=== PATIENT | female | born 1955 | race Caucasian/White ===

== ENCOUNTER 2021-11-03 05:55 | Day surgery (SDC) | payer MEDICARE, OTHER ==
[2021-11-03] MEDS ORDERED: Lactated Ringers 1,000 ML IV SCH (06:00)
[2021-11-03] MEDS ORDERED: DIPRIVAN 200 MG/20 ML IV ONE ×2 (07:31→07:32)
[2021-11-03] MEDS ORDERED: Versed 2 MG/2 ML Injection ONE (07:32)
[2021-11-03 08:35] VITALS: O2SAT 98
[2021-11-03 08:43] VITALS: BP 159/93; PULSE 79
--- NOTE | 2021-11-03 14:06 | OP ---
SURGERY DATE/TIME: 11/03/2021 2021 PREOPERATIVE DIAGNOSIS: Screening exam. POSTOPERATIVE DIAGNOSIS: Scattered diverticulosis of the colon of mild nature. PROCEDURE: Colonoscopy. SURGEON: Dr. Baez. ANESTHESIA: MAC. Medications given by anesthesia department. HISTORY: The patient is a 65-year-old white female presenting now for screening colonoscopy. She was appraised of the risks of the procedure including the risk of perforation, phlebitis, untoward reaction to medication, bleeding and missed lesions. The patient verbalized her understanding and desired to have the procedure performed. DESCRIPTION OF PROCEDURE: The patient was given the medications by the anesthesia department. She had continuous pulse oximetry, ECG monitoring, intermittent blood pressure monitoring during the examination. The patient was placed in the left lateral decubitus position. A digital rectal examination was performed and revealed normal anal sphincter tone and no masses. The flexible Olympus pediatric colonoscope was used to intubate the rectum. A view of the colon was developed sequentially to the cecum. Upon insertion and withdrawal was noted scattered diverticula throughout the colon. No other mucosal lesions were encountered. The scope was removed from the patient who tolerated the procedure well and was sent back to OP recovery in good condition. The prep was noted to be fair to good.
== END 2021-11-03 08:55 | disposition home or self-care (01) ==
LOC: SDC 05:55
PROVIDERS: ATTEND Family Medicine
DX: Z12.11 Encounter for screening for malignant neoplasm of colon (principal); K57.30 Diverticulosis of large intestine without perforation or abscess without bleeding; E11.9 Type 2 diabetes mellitus without complications; Z79.899 Other long term (current) drug therapy; I10 Essential (primary) hypertension
CPT/HCPCS: 82947; G0121; J2250; J2704

== ENCOUNTER 2025-10-04 12:52 | Emergency (ER) | payer MEDICARE ==
[2025-10-04 13:00] VITALS: TEMP 98.2
[2025-10-04 13:28] LABS: BASOPHIL % 0.5 % (0.1-1.2); Basophil (Absolute #) 0.06 x10^3/uL (0.01-0.08); Eosinophil (Absolute #) 0.21 x10^3/uL (0.04-0.36); Hematocrit 41.8 % (34.1-44.9); Hemoglobin 13.9 g/dL (11.2-15.7); IMMATURE GRAN # 0.08 x10^3u/L (0.001-0.031); IMMATURE GRAN % 0.7 % (0.001-0.429); Lymphocyte (Absolute #) 2.81 x10^3/uL (1.18-3.74); Mean Corpuscular Hemoglobin 30.3 pg (25.6-32.2); Mean Corpuscular Hgb Concent. 33.3 g/dL (32.2-35.5); Monocyte (Absolute #) 0.71 x10^3/uL (0.24-0.86); NUCLEATED RBC # 0.00 x10^3u/L (0.00-0.012); NUCLEATED RBC % 0.0 % (0.00-0.2); Platelet Count 417 x10^3/uL (182-369); Red Blood Count 4.58 x10^6/uL (3.93-5.22); White Blood Count 11.4 x10^3/uL (3.98-10.04)
[2025-10-04 13:35] LABS: Calcium 9.3 mg/dL (8.4-10.2); Carbon Dioxide 24.0 mmol/L (22-30); Creatinine 1 0.73 mg/dL (0.52-1.04); EST GLOMERULAR FILTRATION RATE 88.4 ML/MIN; Glucose 281.0 mg/dL (74-106); Potassium 4.1 mmol/L (3.5-5.1); SGOT/AST 31.0 U/L (14-36); SGPT/ALT 28.0 U/L (0-35); Total Protein 8.2 g/dL (6.3-8.2)
[2025-10-04] MEDS: hydroDIURIL 25 MG PO ONE (13:35)
[2025-10-04 13:48] LABS: NT PRO BNPII 88.0 pg/mL (<300); TROPONIN < 0.012 ng/mL (0.000-0.033)
--- NOTE | 2025-10-04 13:49 | XRAY ---
Indication: Hypertension. Comparison: None Portable apical lordotic chest clear with incidental tiny left base calcified granuloma. Heart not enlarged. Bony thorax intact. No acute findings.
--- NOTE | 2025-10-04 14:04 | ERPHSYRPT ---
- History of Present Illness Time Seen by Provider: 10/04/25 12:55 Source: patient Exam Limitations: no limitations Patient Subjective Stated Complaint: PT STATES HER BLOOD PRESSURE IS HIGH Triage Nursing Assessment: PT ARRIVES TO THE ED VIA PRIVATE VEHICLE. PT IS ABLE TO AMBULATE INTO THE ED WITHOUT DIFFICULTY. PT ALERT AND ORIENTED X4, NO SIGNS OF RESPIRATORY DITRESS NOTED, PULSES STRONG AND EQUAL BILATERALLY. PT STATES THAT FOR THE PAST DAY HER BLOOD PRESSURE HAS BEEN HIGH. PT STATES IT HAS BEEN IN THE 190'S SYSTOLICALLY WHEN SHE CHECKS IT AT HOME. PT STATES THAT HER CHEST HAS HAD A DULL ACHING PAIN FOR ONE WEEK, BUT NOTHING SHARP OR CRUSHING. PT DENIES NEW MEDICATIONS, BLURRED VISION, WEAKNESS. Physician History: 69-year-old female presents to the emergency room feeling off she reports her blood pressure has been elevated she reports she has been on benazepril for many years denies any changes in her medications denies any symptoms of dizziness denies any strokelike symptoms denies any shortness of breath she reports for the past few days she has been feeling occasional chest discomfort but denies any abdominal pain denies any nausea vomiting or diarrhea patient is now in ED for further eval Timing/Duration: day(s) (1) Severity: mild Associated Symptoms: No nausea, No vomiting, No cough, No fever, No headaches, No loss of appetite, No syncope Allergies/Adverse Reactions: No Known Drug Allergies Allergy (Verified 11/03/21 06:16) Home Medications: Alendronate Sodium 70 mg [Fosamax 70 MG] 1 tab PO WEEKLY 10/30/21 [History] Benazepril HCl 1 tab PO HS 10/30/21 [History] Levothyroxine Sodium [Euthyrox] 1 tab PO DAILY 10/30/21 [History] Metformin HCl 500 mg [Glucophage 500 MG] 1 tab PO BID 10/30/21 [History] Simvastatin 1 tab PO HS 10/30/21 [History] glyBURIDE [Glyburide] 1 tab PO BID 10/30/21 [History] Fish Oil/Dha/Epa [Fish Oil 1,200 mg Fish Oil] 1 each PO HS 10/04/25 [History] Hx Tetanus, Diphtheria Vaccination/Date Given: No Hx Influenza Vaccination/Date Given: No Hx Pneumococcal Vaccination/Date Given: No Immunizations Up to Date: No Travel Risk - International Travel Have you traveled outside of the country in past 3 weeks: No - Emerging Infectious Disease Are you exhibiting symptoms associated with any current EIDs: No - Review of Systems Constitutional: No Fever, No Chills Eyes: No Symptoms Ears, Nose, & Throat: No Symptoms Respiratory: No Cough, No Dyspnea Cardiac: No Chest Pain, No Edema, No Syncope Abdominal/Gastrointestinal: No Abdominal Pain, No Nausea, No Vomiting, No Diarrhea Genitourinary Symptoms: No Dysuria Musculoskeletal: No Back Pain, No Neck Pain Skin: No Rash Neurological: No Dizziness, No Focal Weakness, No Sensory Changes Psychological: No Symptoms Endocrine: No Symptoms All Other Systems: Reviewed and Negative - Past Medical History Pertinent Past Medical History: Yes Neurological History: No Pertinent History ENT History: No Pertinent History Cardiac History: High Cholesterol, Hypertension Respiratory History: No Pertinent History Endocrine Medical History: Diabetes Type II, Hypothyroidism Musculoskeletal History: No Pertinent History GI Medical History: No Pertinent History History: No Pertinent History Psycho-Social History: No Pertinent History Female Reproductive Disorders: No Pertinent History - Past Surgical History Past Surgical History: Yes Neuro Surgical History: No Pertinent History Cardiac: No Pertinent History Respiratory: No Pertinent History Gastrointestinal: Appendectomy Genitourinary: No Pertinent History Musculoskeletal: No Pertinent History Female Surgical History: No Pertinent History - Social History Smoking Status: Never smoker Exposure to second hand smoke: No Drug Use: none - Social Determinants of Health Will the patient participate in the screening: Yes Do you worry about a steady place to live?: No Do you have any problems with any of the following?: No known problems In the past 12 months,have you had to go without utilities?: No Transportation Issues: No Has anyone in your support network made you feel unsafe?: No Have you or anyone in your house had to go w/o enough food: No - Nursing Vital Signs Nursing Vital Signs: Initial Vital Signs Temperature 98.2 F 10/04/25 12:59 Pulse Rate 83 10/04/25 12:59 Respiratory Rate 16 10/04/25 12:59 Blood Pressure 215/114 10/04/25 12:59 O2 Sat by Pulse Oximetry 97 10/04/25 12:59 Pain Scale Pain Intensity 0 - Physical Exam General Appearance: no apparent distress, alert Eye Exam: PERRL/EOMI, eyes nml inspection Ears, Nose, Throat Exam: normal ENT inspection, TMs normal, pharynx normal, moist mucous membranes Neck Exam: normal inspection, non-tender, supple, full range of motion Respiratory Exam: normal breath sounds, lungs clear, No respiratory distress Cardiovascular Exam: regular rate/rhythm, normal heart sounds, normal peripheral pulses Gastrointestinal/Abdomen Exam: soft, normal bowel sounds, No tenderness, No mass Back Exam: normal inspection, normal range of motion, No CVA tenderness, No vertebral tenderness Extremity Exam: normal inspection, normal range of motion, pelvis stable Neurologic Exam: alert, oriented x 3, cooperative, normal mood/affect, nml cerebellar function, nml station & gait, sensation nml, No motor deficits Skin Exam: normal color, warm, dry, No rash Lymphatic Exam: No adenopathy SpO2: 95 - Course Nursing assessment & vital signs reviewed: Yes EKG Interpreted by Me: RATE, Sinus Rhythm (74), Non-specific ST Changes, Other (no STEMI) Ordered Tests: Active Orders 24 hr Category Date Time Status EKG-ER Only STAT Care 10/04/25 13:18 Completed CHEST 1 VIEW (PORTABLE) Stat Exams 10/04/25 13:18 Completed CBC W DIFF Stat Lab 10/04/25 13:00 Completed CMP Stat Lab 10/04/25 13:00 Completed NT PRO BNPII Stat Lab 10/04/25 13:00 Completed TROPONIN Q3H Lab 10/04/25 13:00 Completed TROPONIN Q3H Lab 10/04/25 16:03 Received UA W/RFX UR CULTURE Stat Lab 10/04/25 13:43 Completed Medication Summary Discontinued Medications Generic Name Dose Route Start Last Admin Trade Name Osvaldo PRN Reason Stop Dose Admin Hydrochlorothiazide 12.5 mg 10/04/25 10:00 10/04/25 13:35 Hydrochlorothiazide 25 Mg Tablet PO 10/04/25 10:01 12.5 mg NOW ONE Administration Lab/Rad Data: Laboratory Result Diagrams 10/04/25 13:00 10/04/25 13:00 Laboratory Results 10/04/25 10/04/25 10/04/25 Range/Units 13:43 13:00 13:00 WBC (3.98-10.04) x10^3/uL RBC (3.93-5.22) x10^6/uL Hgb (11.2-15.7) g/dL Hct (34.1-44.9) % MCV (79.4-94.8) fL MCH (25.6-32.2) pg MCHC (32.2-35.5) g/dL RDW (11.7-14.4) % Plt Count (182-369) x10^3/uL MPV (9.4-12.3) fL Gran % (34.0-71.1) % Immature Gran % (Auto) (0.001-0.429) % Nucleat RBC Rel Count (0.00-0.2) % Eos # (Auto) (0.04-0.36) x10^3/uL Immature Gran # (Auto) (0.001-0.031) x10^3u/L Absolute Lymphs (auto) (1.18-3.74) x10^3/uL Absolute Monos (auto) (0.24-0.86) x10^3/uL Absolute Nucleated RBC (0.00-0.012) x10^3u/L Lymphocytes % (19.3-51.7) % Monocytes % (4.7-12.5) % Eosinophils % (0.7-5.8) % Basophils % (0.1-1.2) % Absolute Granulocytes (1.56-6.13) x10^3/uL Basophils # (0.01-0.08) x10^3/uL Sodium 136 (135-145) mmol/L Potassium 4.1 (3.5-5.1) mmol/L Chloride 101 (98-107) mmol/L Carbon Dioxide 24 (22-30) mmol/L Anion Gap 14.5 (5-15) MEQ/L BUN 17 (7-17) mg/dL Creatinine 0.73 (0.52-1.04) mg/dL Estimated GFR 88.4 ML/MIN Glucose 281 H (74-106) mg/dL Calcium 9.3 (8.4-10.2) mg/dL Total Bilirubin 0.50 (0.2-1.3) mg/dL AST 31 (14-36) U/L ALT 28 (0-35) U/L Alkaline Phosphatase 68 (38-126) U/L Troponin I < 0.012 (0.000-0.033) ng/mL NT-Pro-B Natriuret Pep 88.0 (<300) pg/mL Serum Total Protein 8.2 (6.3-8.2) g/dL Albumin 4.8 (3.5-5.0) g/dL Urine Color Yellow (Yellow) Urine Appearance Clear (Clear) Urine pH 7.0 (4.6-8.0) Ur Specific [place] <=1.005 (1.005-1.030) Urine Protein Negative (Negative) Urine Glucose (UA) 500 A (Negative) mg/dL Urine Ketones Negative (Negative) Urine Blood Trace (Negative) Urine Nitrite Negative (Negative) Urine Bilirubin Negative (Negative) Urine Urobilinogen 0.2 (0.2) mg/dL Ur Leukocyte Esterase Negative (Negative) U Hyaline Cast (Auto) NONE SEEN (0-2) /LPF Urine Microscopic RBC 0-2 (0-5) /HPF Urine Microscopic WBC 0-2 (0-5) /HPF Ur Epithelial Cells None Seen (None Seen) /HPF Urine Bacteria None Seen (None Seen) /HPF Urine Culture Reflexed NO (NO) 10/04/25 Range/Units 13:00 WBC 11.4 H (3.98-10.04) x10^3/uL RBC 4.58 (3.93-5.22) x10^6/uL Hgb 13.9 (11.2-15.7) g/dL Hct 41.8 (34.1-44.9) % MCV 91.3 (79.4-94.8) fL MCH 30.3 (25.6-32.2) pg MCHC 33.3 (32.2-35.5) g/dL RDW 12.2 (11.7-14.4) % Plt Count 417 H (182-369) x10^3/uL MPV 10.2 (9.4-12.3) fL Gran % 66.2 (34.0-71.1) % Immature Gran % (Auto) 0.7 H (0.001-0.429) % Nucleat RBC Rel Count 0.0 (0.00-0.2) % Eos # (Auto) 0.21 (0.04-0.36) x10^3/uL Immature Gran # (Auto) 0.08 H (0.001-0.031) x10^3u/L Absolute Lymphs (auto) 2.81 (1.18-3.74) x10^3/uL Absolute Monos (auto) 0.71 (0.24-0.86) x10^3/uL Absolute Nucleated RBC 0.00 (0.00-0.012) x10^3u/L Lymphocytes % 24.6 (19.3-51.7) % Monocytes % 6.2 (4.7-12.5) % Eosinophils % 1.8 (0.7-5.8) % Basophils % 0.5 (0.1-1.2) % Absolute Granulocytes 7.55 H (1.56-6.13) x10^3/uL Basophils # 0.06 (0.01-0.08) x10^3/uL Sodium (135-145) mmol/L Potassium (3.5-5.1) mmol/L Chloride (98-107) mmol/L Carbon Dioxide (22-30) mmol/L Anion Gap (5-15) MEQ/L BUN (7-17) mg/dL Creatinine (0.52-1.04) mg/dL Estimated GFR ML/MIN Glucose (74-106) mg/dL Calcium (8.4-10.2) mg/dL Total Bilirubin (0.2-1.3) mg/dL AST (14-36) U/L ALT (0-35) U/L Alkaline Phosphatase (38-126) U/L Troponin I (0.000-0.033) ng/mL NT-Pro-B Natriuret Pep (<300) pg/mL Serum Total Protein (6.3-8.2) g/dL Albumin (3.5-5.0) g/dL Urine Color (Yellow) Urine Appearance (Clear) Urine pH (4.6-8.0) Ur Specific [place] (1.005-1.030) Urine Protein (Negative) Urine Glucose (UA) (Negative) mg/dL Urine Ketones (Negative) Urine Blood (Negative) Urine Nitrite (Negative) Urine Bilirubin (Negative) Urine Urobilinogen (0.2) mg/dL Ur Leukocyte Esterase (Negative) U Hyaline Cast (Auto) (0-2) /LPF Urine Microscopic RBC (0-5) /HPF Urine Microscopic WBC (0-5) /HPF Ur Epithelial Cells (None Seen) /HPF Urine Bacteria (None Seen) /HPF Urine Culture Reflexed (NO) - Progress Progress: improved - Departure Departure Disposition: Home Clinical Impression: Hypertension Qualifiers: Hypertension type: unspecified Qualified Code(s): I10 - Essential (primary) hypertension Condition: Stable Critical Care Time: No Referrals: XAVIER ARTEAGA [Primary Care Provider, [facility]ILY [facility]] - Follow up/PCP as directed Instructions: High blood pressure in adults, Controlling your blood pressure through lifestyle, Medicines for high blood pressure Additional Instructions: MEASURE YOUR BLOOD PRESSURE DAILY BEFORE TAKING YOUR MEDICATIONS THAT WE HAVE PRESCRIBED. IF YOUR BLOOD PRESSURE IS < 130/90 THEN DON'T TAKE YOUR MEDICATION AND SKIP THE DOSE. FOLLOW UP WITH YOUR FAMILY DOCTOR ON THE . Prescriptions: Hydrochlorothiazide 25 mg [hydroDIURIL 25 MG] 12.5 mg PO DAILY #14 tablet
[2025-10-04 15:16] LABS: Glucose, Urine 500 mg/dL (Negative); Protein,Urine Dip Negative (Negative); RBC 0-2 /HPF (0-5); WBC 0-2 /HPF (0-5)
[2025-10-04 17:05] VITALS: BP 159/90; PULSE 69; RESP 18; O2SAT 97
== END 2025-10-04 17:14 | disposition home or self-care (01) ==
LOC: ED 12:52
DX: I10 Essential (primary) hypertension (principal); R07.9 Chest pain, unspecified; E11.9 Type 2 diabetes mellitus without complications; Z79.84 Long term (current) use of oral hypoglycemic drugs; Z79.899 Other long term (current) drug therapy